=== PATIENT | male | born 1955 | race Caucasian/White ===

== ENCOUNTER → 2017-02-27 | Outpatient (CLI) | payer OTHER | LOC: KOH-I 12:18 | DX: R91.8 Other nonspecific abnormal finding of lung field (principal); J44.1 Chronic obstructive pulmonary disease with (acute) exacerbation; R59.9 Enlarged lymph nodes, unspecified | CPT/HCPCS: 71250 ==

== ENCOUNTER → 2020-10-19 | Outpatient (CLI) | payer MEDICARE, OTHER ==
[~2020-10-19] MED LIST: ASPIRIN CHEWABL81 MG PO; ENDOCET 5-3251 EACH PO; LOPRESSOR50 MG PO; NORVASC10 MG PO; PERCOCET 10-321 EACH PO; SYMBICORT 160-1 INHA INH; TURMERIC1 GM MC; TYLENOL 500 MG500 MG PO; ULTRAM50 MG PO; VENTOLIN HFA 66.7 GM INH; VITAMIN B-121000 MCG PO; VITAMIN D32000 UNI1 PO
== END ==
LOC: EXRD 09:26
DX: M85.80 Other specified disorders of bone density and structure, unspecified site (principal)
CPT/HCPCS: 77080

== ENCOUNTER 2021-02-20 14:13 | Emergency (ER) | payer MEDICARE, OTHER ==
[~2021-02-20 14:13] MED LIST changes: -ENDOCET 5-3251 EACH PO
[2021-02-20 15:56] LABS: HEMOGLOBIN 15.6 gm/dl (14.0-17.5); RED BLOOD COUNT 5.3 M/UL (4.20-5.50); WHITE BLOOD COUNT 22.7 K/UL (4.5-11.0)
[2021-02-20 16:20] LABS: BUN/CREATININE RATIO 15 (0-10)
[2021-02-20] MEDS ORDERED: ENDOCET 5-3251 EACH PO (18:17)
== END 2021-02-20 17:38 | disposition home or self-care (01) ==
LOC: ER1 14:13
PROVIDERS: Emergency Medicine
DX: S20.211A Contusion of right front wall of thorax, initial encounter (principal); S00.83XA Contusion of other part of head, initial encounter; X50.9XXA Other and unspecified overexertion or strenuous movements or postures, initial encounter; J60 Coalworker's pneumoconiosis
CPT/HCPCS: 70450; 71045; 73030; 80053; 82550; 82553; 83874; 83880; 84484; 85025; 93005; 99284

== ENCOUNTER → 2021-04-16 | Outpatient (CLI) | payer MEDICARE ==
[~2021-04-16] MED LIST changes: +ENDOCET 5-3251 EACH PO
== END ==
LOC: RAD 11:52
DX: M51.36 Other intervertebral disc degeneration, lumbar region (principal); M47.816 Spondylosis without myelopathy or radiculopathy, lumbar region
CPT/HCPCS: 72110

== ENCOUNTER → 2021-07-14 | Outpatient (CLI) | payer MEDICARE | LOC: EXRD 10:54 | DX: M50.322 Other cervical disc degeneration at C5-C6 level (principal) | CPT/HCPCS: 72050 ==

== ENCOUNTER → 2021-11-24 | Outpatient (CLI) | payer MEDICARE | LOC: HEART 5 10:26 | DX: J64 Unspecified pneumoconiosis (principal); J20.8 Acute bronchitis due to other specified organisms; J44.9 Chronic obstructive pulmonary disease, unspecified; R76.0 Raised antibody titer; F41.9 Anxiety disorder, unspecified; M19.90 Unspecified osteoarthritis, unspecified site; Z68.31 Body mass index [BMI] 31.0-31.9, adult; M54.12 Radiculopathy, cervical region; R91.8 Other nonspecific abnormal finding of lung field; R94.2 Abnormal results of pulmonary function studies | CPT/HCPCS: 71046; 94060; 94729 ==